=== PATIENT | female | born 1980 | race Caucasian/White ===

== ENCOUNTER 2018-12-12 18:57 | Inpatient (IN) | payer BC ==
[2018-12-12] MEDS ORDERED: Nalbuphine 20 MG/ML 1 ML Syringe IVPUSH PRN (20:28)
[2018-12-12] MEDS ORDERED: Sodium Chloride 0.9% 10 ML Syringe FLUSH PRN (20:28)
[2018-12-12] MEDS ORDERED: Oxytocin/Lactated Ringers 10 UNIT/1,000 ML BAG IV SCH (20:30)
[2018-12-12] MEDS ORDERED: Lactated Ringers 1,000 ML IV SCH (20:30)
--- NOTE | 2018-12-12 22:00 | PCM.LDHP ---
L&D History of Present Illness - General Admit Problem/Dx: Patient Status Order with Admit Dx/Problem 12/12/18 20:29 Patient Status [ADT] Routine Admission Diagnosis/Problem Admission Diagnosis/Problem Source of Information: Patient History Limitations: Reports: No Limitations - Related Data Allergies/Adverse Reactions: Allergies Allergy/AdvReac Type Severity Reaction Status Date / Time No Known Allergies Allergy Verified 12/12/18 19:18 H&P Review of Systems - Review of Systems: Review Of Systems: See Below L&D Exam - Exam Exam: See Below - Vital Signs Vital Signs: Last Vital Signs Temp 36.9 C 12/12/18 19:18 Pulse 70 12/12/18 19:18 Resp 14 12/12/18 19:18 BP 132/88 12/12/18 19:18 Pulse Ox Weight: 90.718 kg - Patient Data Lab Results Last 24 hrs: Laboratory Results - last 24 hr 12/12/18 12/12/18 12/12/18 Range/Units 19:40 20:55 20:55 WBC 8.71 (3.98-10.04) K/mm3 RBC 4.03 (3.98-5.22) M/mm3 Hgb 11.0 L (11.2-15.7) gm/L Hct 33.5 L (34.1-44.9) % MCV 83.1 (79.4-94.8) fl MCH 27.3 (25.6-32.2) pg MCHC 32.8 (32.2-35.5) g/dl RDW Std Deviation 48.2 H (36.4-46.3) fL Plt Count 192 (182-369) K/mm3 MPV 11.3 (9.4-12.3) fl Neut % (Auto) 79.7 H (34.0-71.1) % Lymph % (Auto) 13.1 L (19.3-51.7) % Bosque % (Auto) 6.5 (4.7-12.5) % Eos % (Auto) 0.5 L (0.7-5.8) Baso % (Auto) 0.1 (0.1-1.2) % Neut # (Auto) 6.94 H (1.56-6.13) K/mm3 Lymph # (Auto) 1.14 L (1.18-3.74) K/mm3 Bosque # (Auto) 0.57 H (0.24-0.36) K/mm3 Eos # (Auto) 0.04 (0.04-0.36) K/mm3 Baso # (Auto) 0.01 (0.01-0.08) K/mm3 Membrane Rupture Positive H Blood Type A NEGATIVE Result Diagrams: 12/12/18 20:55 Problem List Initiated/Reviewed/Updated: Yes Orders Last 24hrs: Active Orders 24 hr Category Date Time Status Patient Status [ADT] Routine ADT 12/12/18 20:29 Active Activity as Tolerated [RC] PFP Care 12/12/18 20:28 Active Communication Order [RC] ASDIRECTED Care 12/12/18 20:28 Active Heart Tones [RC] ASDIRECTED Care 12/12/18 20:28 Active Non Stress Test [RC] PER UNIT ROUTINE Care 12/12/18 19:18 Active Non Stress Test [RC] PER UNIT ROUTINE Care 12/12/18 20:28 Active Notify Provider [RC] PFP Care 12/12/18 20:28 Active Notify Provider [RC] PRN Care 12/12/18 20:28 Active Peripheral IV Care [RC] . DIRECTED Care 12/12/18 20:28 Active Vital Signs [RC] PER UNIT ROUTINE Care 12/12/18 19:18 Active Vital Signs [RC] PER UNIT ROUTINE Care 12/12/18 20:28 Active Regular Diet [DIET] Diet 12/13/18 Breakfast Active RAPID PLASMA REAGIN,RPR [CHEM] Routine Lab 12/12/18 20:55 Received TYPE AND SCREEN [BBK] Stat Lab 12/12/18 20:55 Results Lactated Ringers [Ringers, Lactated] 1,000 ml Med 12/12/18 20:30 Active IV ASDIRECTED Nalbuphine [Nubain] Med 12/12/18 20:28 Active 10 mg IVPUSH Q2H PRN Oxytocin/Lactated Ringers [Pitocin in LR 10 Units/1,000 Med 12/12/18 20:30 Active ML] 10 unit in 1,000 ml IV .CONTINUOUS Sodium Chloride 0.9% [Saline Flush] Med 12/12/18 20:28 Active 10 ml FLUSH ASDIRECTED PRN Electronic Heart Tones Ext w TOCO [WOMSER] Oth 12/12/18 20:28 Ordered Routine Electronic Heart Tones Internal [WOMSER] Per Unit Ot 12/12/18 20:28 Ordered Routine Peripheral IV Insertion Adult [OM.PC] Routine Ot 12/12/18 20:28 Ordered Resuscitation Status Routine Resus Stat 12/12/18 19:18 Ordered Medication Orders Lactated Ringer's (Ringers, Lactated) 1,000 mls @ 100 mls/hr IV ASDIRECTED BHAVNA Oxytocin/Lactated Ringer's (Pitocin In Lr 10 Units/1,000 Ml) 10 unit in 1,000 mls @ 500 mls/hr IV .CONTINUOUS BHAVNA Nalbuphine HCl (Nubain) 10 mg IVPUSH Q2H PRN PRN Reason: pain Sodium Chloride (Saline Flush) 10 ml FLUSH ASDIRECTED PRN PRN Reason: Keep Vein Open
--- NOTE | 2018-12-13 02:53 | HP ---
DATE OF ADMISSION: 12/12/2018 CHIEF COMPLAINT: A 39 and 6/7 weeks intrauterine , spontaneous rupture of membranes 23 hours prior to admission to the hospital, early labor. HISTORY OF PRESENT ILLNESS: The patient is a 38-year-old, 4, para 2-1-0-3 female who was admitted with spontaneous rupture of membranes occurring at approximately 2200 hours on 12/11/2018. She was first admitted to Labor and Delivery at approximately 2100 hours on 12/12/2018, having been ruptured for approximately 23 hours. She is isiah mildly to moderately. Her cervix was 4 cm dilated and 90% effaced, -1 station per nursing evaluation. Gross rupture of membranes noted and AmniSure has returned positive. She reports that the baby has been active. She desires natural labor. She would like to do a trial of labor after section, having had a previous section with her second for bleeding secondary to a complete abruptio placenta. She has successfully with her third at term. The procedure of trial of labor for attempt at vaginal after section, its risks, benefits, alternatives of care including repeat section are discussed in detail with the patient. Also discussed with her our measures, possibly reduce the risk of trial labor for after section for . These include obtaining labs, alerting surgery and Anesthesia Department that of . The patient is in Labor and Delivery, IV access, near continuous monitoring to assess for potential heart tones irregularities. The patient has been noted by nursing staff to be very difficult to monitor with the blue tooth mobile monitors and also with the wired monitors while patient is up. The patient has been advised to consider scalp electrode monitoring of heart activity. She declines this at this time. She wishes to do intermittent monitoring and is willing to do 5 minutes every 15 minutes. OCCASIONAL BABYSITTER HISTORY: 4, para 2-1-0-3. Deliveries have included the followin. Male infant born 12/12/2009 at 40 weeks gestational age after 13 hours of labor. A 7 pounds 8 ounces male infant born in [place], [place]. Child's name is Ford. 2. Male born 02/15/2012 at 33 weeks gestational age at 5 pounds 0 ounces in [facility]. Complete placenta previa requiring 8 weeks of bed rest prior to section at 33 weeks. Child's name is Monster. 3. Male infant born 08/16/2014 at 39 weeks gestational age, 8 pounds 0 ounces, born via vaginal after section in [place], [place]. Child's name is Elke. The patient's course started at 13 and 2/7th weeks. Last menstrual period was fairly certain and started 03/12/2018. No control being used at the time of conception. Menarche age 13. Cycles every 27 to 32 days. Laboratory testing in : Blood is A negative with negative antibody screen. First hemoglobin was 13.1 g/dL with platelets at 200,000. She is rubella immune. RPR is nonreactive. Urine cultures were negative. Hepatitis B surface antigen test was negative. HIV assay was negative. Chlamydia and gonorrhea assays were both negative. Second trimester labs showed hemoglobin 10.9 g/dL. Platelets 213,000. 1-hour glucose tolerance test was 132. 3-hour glucose tolerance test was negative. Rh immunoglobulin was given on 09/09/2018. Group B strep screen was negative. Other care: The patient was seen on a regular basis. Her weight gain was from 152.8 to 203.6 pounds for approximately a 51 pounds weight gain. Vital signs were stable throughout the course. Fundal height growth was appropriate. The patient had a Tdap vaccination during the . Her 1- hour glucose tolerance test was elevated as described above. The patient's baby was noted to have a heart echogenic focus. It persisted on evaluation 8 weeks later. She declined genetic testing. She declined flu shot. She had mild anemia in second trimester and is taking iron and vitamin C for therapy of this. ALLERGIES: None. PAST MEDICAL HISTORY: 1. Vaginal delivery x2. 2. Placenta previa. 3. Rh negative blood. PAST SURGICAL HISTORY: x1 for placenta previa with second baby. FAMILY HISTORY: Paternal grandmother with heart disease. Sister with hypothyroidism. Mother with depression history. 1 sister with celiac disease. 1 brother with asthma. No anesthesia, bleeding, blood clotting problems, or problems noted in the family. SOCIAL HISTORY: The patient is . is Bjorn Burr. They live in [place], [place]. She does not use any significant amounts of alcohol, drugs, or tobacco. REVIEW OF SYSTEMS: GENERAL: The patient has no concerns other than those associated with early labor. She is isiah. She reports gross leakage of fluid starting approximately 23 hours prior to admission for this hospitalization. SKIN: Negative. LUNGS: No infectious symptoms or shortness of breath. CARDIOVASCULAR: No chest pain or exercise intolerance. BREASTS: No lumps, changes in size, pain, dimpling, discharge, or axillary supraclavicular concerns. GI: Negative. : Changes associated with fundal height consistent with dates. Baby in a vertex presentation. MUSCULOSKELETAL: Negative. NEUROLOGICAL: Negative. PHYSICAL EXAMINATION: GENERAL: The patient is a well-developed, well-nourished, pleasant female, stated age, in no acute distress. SKIN: Warm and dry without lesions. HEENT: Within normal limits. NECK: Within normal limits. BACK: Within normal limits. LUNGS: Clear with good breath sounds in all lung pack. CARDIOVASCULAR: Shows regular rate and rhythm without murmurs. BREASTS: Deferred, having been done previously. ABDOMEN: Gravid. Fundal height consistent with dates. Vertex presentation by Reno maneuver and cervical exam. GENITAL: Shows cervix by my evaluation to be 4-5 cm, 90% effaced, very soft, 0 station, cephalic presentation, anterior. EXTREMITIES: Grossly within normal limits. NEUROLOGICAL: Grossly within normal limits. ASSESSMENT: 1. A 39 and 6/7th weeks intrauterine with spontaneous rupture of membranes, active labor and advanced cervical dilation to 4-5 cm. 2. History of spontaneous rupture of membranes 23 hours prior to admission to the hospital this date. 3. Group B strep screen negative. 4. History of previous section for placenta previa. The patient delivered 1 baby prior to that section and has done a trial of labor after section. 5. A successful vaginal after section with her third child. That child was 8 pounds and 0 ounces. The patient wishes to proceed with vaginal after section. The procedure, risks, benefits, alternatives of care including a repeat section were all discussed in detail with the patient and have been discussed by Dr. Cruz. She appears to understand, wishes to proceed and has signed a consent for and for section. 6. Preoperative labs. 7. Recommend near continuous heart rate monitoring. The patient has declined scalp electrode monitoring. She realizes that the external monitoring is less than optimal because of body habitus and difficulty maintaining the blue tooth mobile transducers on her abdomen. 8. Surgery and Anesthesia Department have informed of the patient's presence in Labor and Delivery. MMC[facility] /[id number]
--- NOTE | 2018-12-13 04:47 | PCM.SN ---
- Free Text/Narrative Note: Jayla is a 38-year-old 4 now para 3104 white female with an GEOFF of was admitted on the evening of 12/12/2018 at approximately 2100 hrs. Patient had had spontaneous rupture of membranes at 2200 hrs. on 12/11/2018. She arrived in labor and delivery in early labor. She was isiah every 3-5 minutes. Spontaneous rupture membranes was confirmed clinically and with an amnio sure test. heart tones were reassuring. Patient had had a previous section for a complete placenta previa with her second baby at 33 weeks gestational age in room, irregularly. She desired to at this time. She delivered a baby vaginally with first and third children. She therefore had a successful history. Discussion is held with patient has to the process, risks, benefits, alternatives of care including a repeat section. 2. Understanding, signed a consent form and underwent the risk reducing factors including obtaining labs, near continuous monitoring, alerting surgery and anesthesia patient was present in the labor and delivery area, obtain IV access. Patient progressed steadily and moderately well to complete cervical dilation by approximately 0300 hrs. At 0313 hrs. on 12/13/2018 patient delivered a viable , simpson, 4120 gm (9 pounds, 1.3 ounces) male with Apgars of 9 and 9 in a direct occiput anterior position. Upon delivery of the baby was placed on mom's abdomen. Pitocin was started through the IV to facilitate increase uterine tone and decreased risk of bleeding. The cord was allowed to pulsate for approximately 2 minutes. It was then clamped and cut. Is noted to have 3 vessels. The perineum was noted to have a small superficial first-degree laceration. This was repaired with a single [id number] suture of 3-0 Monocryl. No anesthetic was used. The placenta delivered in a Bernabe presentation, appeared intact and complete and was discarded per patient desire. Patient had an EBL of 100 mL. She plans to breast-feed. Condition: Good.
[2018-12-13] MEDS ORDERED: Benzocaine/Menthol 20%-0.5% Spray 56 GM Canister TOP PRN (05:45)
[2018-12-13] MEDS ORDERED: Witch Hazel Medicated Pads 40/Jar TOP PRN (05:45)
[2018-12-13] MEDS ORDERED: Lanolin 100% Cream 7 GM Tube TOP PRN (05:45)
[2018-12-13] MEDS ORDERED: Acetaminophen 325 MG Tab PO PRN (05:45)
[2018-12-13] MEDS ORDERED: Docusate Sodium 100 MG Cap PO PRN (05:45)
[2018-12-13] MEDS: Ibuprofen 600 MG Tab PO PRN ×2 (06:09→20:25)
--- NOTE | 2018-12-13 09:32 | PCM.SN ---
- Free Text/Narrative Note: note: Patient is doing well in the period. Minimal lochia, voiding well, ambulated without problems. Nursing without concerns. Patient is afebrile, vital signs are stable Abdomen is flat, soft, uterus is below the umbilicus and is firm and nontender. Legs are nontender. Assessment: Successful . recovery going well. Plan: Routine care. Patient be discharged home within the next 24-48 hours.
--- NOTE | 2018-12-14 07:21 | PCM.DCSUM1 ---
Discharge Summary - Hospital Course Free Text/Narrative:: Jayla is a 38-year-old 4 now para 3104 white female with an GEOFF of was admitted on the evening of 12/12/2018 at approximately 2100 hrs. Patient had had spontaneous rupture of membranes at 2200 hrs. on 12/11/2018. She arrived in labor and delivery in early labor. She was isiah every 3-5 minutes. Spontaneous rupture membranes was confirmed clinically and with an amnio sure test. heart tones were reassuring. Patient had had a previous section for a complete placenta previa with her second baby at 33 weeks gestational age in room, irregularly. She desired to at this time. She delivered a baby vaginally with first and third children. She therefore had a successful history. Discussion is held with patient has to the process, risks, benefits, alternatives of care including a repeat section. 2. Understanding, signed a consent form and underwent the risk reducing factors including obtaining labs, near continuous monitoring, alerting surgery and anesthesia patient was present in the labor and delivery area, obtain IV access. Patient progressed steadily and moderately well to complete cervical dilation by approximately 0300 hrs. At 0313 hrs. on 12/13/2018 patient delivered a viable , simpson, 4120 gm (9 pounds, 1.3 ounces) male with Apgars of 9 and 9 in a direct occiput anterior position. Upon delivery of the baby was placed on mom's abdomen. Pitocin was started through the IV to facilitate increase uterine tone and decreased risk of bleeding. The cord was allowed to pulsate for approximately 2 minutes. It was then clamped and cut. Is noted to have 3 vessels. The perineum was noted to have a small superficial first-degree laceration. This was repaired with a single [id number] suture of 3-0 Monocryl. No anesthetic was used. The placenta delivered in a Bernabe presentation, appeared intact and complete and was discarded per patient desire. Patient had an EBL of 100 mL. She plans to breast-feed. doing very well. She is nursing without problems. She has minimal lochia. Is ambulating and voiding well. She is desiring discharge home. Diagnosis: Stroke: No - Discharge Data Discharge Date: 12/14/18 Discharge Disposition: Home, Self-Care 01 Condition: Good - Patient Instructions Diet: Regular Diet as Tolerated (Nursing diet with increased calories and calcium as recommended) Activity: As Tolerated (No intercourse or tampons until bleeding resolves.) Driving: May Drive Today Showering/Bathing: May Shower (May take a bath) Notify Provider of: Fever, Increased Pain, Swelling and Redness, Nausea and/or Vomiting - Discharge Plan Home Medications: Home Meds Acetaminophen [Tylenol] 650 mg PO Q4H PRN tablet 12/14/18 [Rx] Ibuprofen [Motrin] 600 mg PO Q4H PRN tablet 12/14/18 [Rx] Vit with Ca/FA/Iron [ Plus Iron] 1 each PO DAILY tablet [Rx] Referrals: Tay Cruz MD [Physician] - ([facility] - Discharge Summary/Plan Comment DC Time >30 min.: No Discharge Summary/Plan Comment: Discharge instructions: 1. Discharge home 2. Diet, activity and follow-up discussed with patient. Recommend nursing diet with increased calories and calcium. 3. Precautions given concern increased pain, bleeding, temperature, signs/ symptoms of DVT/PE. 4. Medications per home medication was printed, discussed with and given to the patient. 5. Return to clinic-Dr. Cruz[facility] in 2 weeks. Diagnosis: Term -delivered Condition: Good - Patient Data Vitals - Most Recent: Last Vital Signs Temp 36.9 C 12/14/18 04:26 Pulse 67 12/14/18 04:26 Resp 14 12/14/18 04:26 BP 127/70 12/14/18 04:26 Pulse Ox 95 12/14/18 04:26 Weight - Most Recent: 90.718 kg I&O - Last 24 hours: Intake & Output 12/13/18 12/14/18 12/14/18 22:59 06:59 14:59 Intake Total 322 Balance 322 Lab Results - Last 24 hrs: Laboratory Results - last 24 hr 12/12/18 12/13/18 Range/Units 20:55 10:57 RPR Non-reactive (NONREACTIVE) Blood Type A NEGATIVE Gel Antibody Screen Positive Screen 0 ros/5 flds - neg RhIG Candidate? Yes Rhogam Indicated Yes, baby rh unknown H Med Orders - Current: Current Medications Acetaminophen (Tylenol) 650 mg PO Q4H PRN PRN Reason: mild pain or fever Benzocaine/Menthol (Dermoplast Pain Relief Hester) 0 gm TOP ASDIRECTED PRN PRN Reason: Perineal Comfort Measure Last Admin: 12/13/18 06:10 Dose: 1 canister Docusate Sodium (Colace) 100 mg PO BID PRN PRN Reason: Constipation Emollient Ointment (Lansinoh Hpa) 0 gm TOP ASDIRECTED PRN PRN Reason: Sore Nipples Ibuprofen (Motrin) 600 mg PO Q4H PRN PRN Reason: Mild pain or fever Last Admin: 12/13/18 20:25 Dose: 600 mg Prenat Multivit/Color Making Supervisor/Iron/Folic Ac ( Plus Iron) 1 each PO DAILY [facility] Joel Beverly (Tucks) 1 pad TOP ASDIRECTED PRN PRN Reason: Pain Last Admin: 12/13/18 06:10 Dose: 1 tub Discontinued Medications Lactated Ringer's (Ringers, Lactated) 1,000 mls @ 100 mls/hr IV ASDIRECTED BHAVNA Oxytocin/Lactated Ringer's (Pitocin In Lr 10 Units/1,000 Ml) 10 unit in 1,000 mls @ 500 mls/hr IV .CONTINUOUS BHAVNA Nalbuphine HCl (Nubain) 10 mg IVPUSH Q2H PRN PRN Reason: pain Sodium Chloride (Saline Flush) 10 ml FLUSH ASDIRECTED PRN PRN Reason: Keep Vein Open
[2018-12-14] MEDS: Prenatal Multivitamin with Calcium/Folic Acid/Iron Tab PO SCH ×2 (08:03→08:32)
== END 2018-12-14 10:20 | disposition home or self-care (01) | DRG 560 ==
LOC: JD.OBCHECK 18:57 → JD.OB 18:57 → JD.OBCHECK 19:59 → JD.OB 20:00 → OBSVTOIN 12-13 03:13
PROVIDERS: ADMIT Obstetrics & Gynecology; ATTEND Obstetrics & Gynecology
PROC: 0HQ9XZZ Repair Perineum Skin, External Approach (ICD-10-PCS; principal; 2018-12-13)
PROC: 10E0XZZ Delivery of Products of Conception, External Approach (ICD-10-PCS; principal; 2018-12-13)
PROC: 3E0234Z Introduction of Serum, Toxoid and Vaccine into Muscle, Percutaneous Approach (ICD-10-PCS; 2018-12-13)
DX: O34.219 Maternal care for unspecified type scar from previous cesarean delivery (principal); N85.8 Other specified noninflammatory disorders of uterus; Z3A.39 39 weeks gestation of pregnancy; Z37.0 Single live birth; O26.893 Other specified pregnancy related conditions, third trimester; Z67.11 Type A blood, Rh negative; O70.0 First degree perineal laceration during delivery
CPT/HCPCS: 36415; 59025; 59409; 84112; 85025; 85461; 86592; 86850; 86900; 86901; A9270-GY; J2790